=== PATIENT | male | born 1975 | race Caucasian/White ===

== ENCOUNTER → 2024-02-10 | Outpatient (CLI) | payer MEDICAID, SELFPAY ==
--- NOTE | 2024-02-10 14:30 | XR_ITS ---
Examination: MRI lumbar spine without contrast Date and time of exam: February 10, 2024 1412 hours INDICATIONS: Lower back pain radiating down both legs the last 2 years Technique: Multiple MRI axial and sagittal sections lumbar spine. Sagittal T2-weighted images, TR 3500, TE 118 T1 weighted transverse sections, TR 688 T8.5, T2-weighted sagittal sections T1 weighted sagittal sections TR 621, TE 30 T2 axial sections, TR 4, 190, TE 84. Findings: Adequate alignment lumbar vertebral bodies No lumbar fracture Normal marrow signal lumbar vertebral bodies Disc desiccation lower 2 lumbar levels Moderate disc narrowing L5-S1 L5-S1 3 mm central lumbar disc bulge L4-L5 2 mm central lumbar disc bulge L3-L4 no disc protrusion L2-L3 no disc protrusion L1-L2 no disc protrusion IMPRESSION: Moderate degenerative disc disease L5-S1 with 3 mm central lumbar disc bulge L4-L5 2 mm central lumbar disc bulge
== END | disposition home or self-care (01) ==
PROVIDERS: PCP Family Medicine; Referring Provider Nurse Practitioner; Visit Provider Nurse Practitioner
DX: M51.379 Other intervertebral disc degeneration, lumbosacral region without mention of lumbar back pain or lower extremity pain (principal); M51.369 Other intervertebral disc degeneration, lumbar region without mention of lumbar back pain or lower extremity pain
CPT/HCPCS: 72148

== ENCOUNTER → 2025-02-11 | Outpatient (CLI) | payer MEDICAID, SELFPAY ==
--- NOTE | 2025-02-11 10:45 | XR_ITS ---
Examination: MRI abdomen without contrast Date and time of exam: February 11, 2025, 10:49 a.m. INDICATIONS: Low blood sugar level 7 years, hypoglycemia unspecified Technique: Multiple MRI axial and sagittal sections abdomen without contrast. Sagittal T2-weighted images, TR 3500, TE 118 T1 weighted transverse sections, TR 688 T8.5, T2-weighted sagittal sections T1 weighted sagittal sections TR 621, TE 30 T2 axial sections, TR 4, 190, TE 84. Findings: No focal liver lesions or biliary tract dilatation No gallstones Normal common hepatic common bile duct No pancreatic mass or peripancreatic edema Spleen is not enlarged No ascites Aorta normal size No renal or ureteral calculi, no hydronephrosis IMPRESSION: Negative for abdominal mass
== END | disposition home or self-care (01) ==
LOC: SMRI 10:21
PROVIDERS: PCP Family Medicine; Referring Provider Family Medicine; Visit Provider Family Medicine
DX: E16.2 Hypoglycemia, unspecified (principal)
CPT/HCPCS: 74181

== ENCOUNTER → 2025-03-03 | Outpatient (CLI) | payer MEDICAID, SELFPAY ==
--- NOTE | 2025-03-03 11:30 | XR_ITS ---
Examination: Abdomen sonogram, complete Date and time of exam: 03/03/2025 at 11:39 a.m. CLINICAL INDICATION: Abdominal pain for 1 month . Technique: Multiple real-time grayscale transabdominal sonographic images of the abdomen have been obtained. Findings: The liver appears slightly enlarged, there is increased echogenicity noted throughout the liver consistent with fatty infiltration. The gallbladder was well seen and normal. The common bile duct measures 0.3 cm in diameter which is normal no stones are seen. The pancreas is not visualized well at all, principally related to the patient's obesity and overlying bowel gas.. The abdominal aorta is perfectly normal in caliber. However the middle third of the abdominal aorta is obscured by bowel gas. Both right and left kidneys are normal in size, and the renal cortex appears essentially normal on both sides. No calculi and no obstructive uropathy are seen The spleen is perfectly normal in size, there is no ascites IMPRESSION: 1. Overall, there is suboptimal visualization of most structures in the abdomen based on the patient's obesity and a large amount of bowel gas 2. The liver is felt to be enlarged and there is fatty infiltration noted throughout the liver 3. Gallbladder is well-seen and 4. The pancreas is pretty much obscured by bowel gas. 5 and all of the respects this study is essentially negative
== END | disposition home or self-care (01) ==
PROVIDERS: PCP Family Medicine; Referring Provider Family Medicine; Visit Provider Family Medicine
DX: E66.9 Obesity, unspecified (principal); K76.0 Fatty (change of) liver, not elsewhere classified
CPT/HCPCS: 76700